=== PATIENT | male | born 1935 | race Caucasian/White ===

== ENCOUNTER 2016-10-27 06:06 | Day surgery (SDC) | payer MEDICARE, OTHER ==
[2016-10-27] MEDS ORDERED: LACTATED RINGERS 1,000 ML IV ONE (06:44)
[2016-10-27] MEDS ORDERED: fentaNYL 100 MCG/2 ML VIAL IVP ONE (07:30)
[2016-10-27] MEDS ORDERED: MIDAZOLAM 2 MG/2 ML VIAL IVP ONE (07:30)
[2016-10-27 09:12] VITALS: BP 121/63
== END 2016-10-27 06:07 | disposition home or self-care (01) ==
LOC: SDS 06:06
PROVIDERS: ATTEND Surgery
PROC: 0DBH8ZX Excision of Cecum, Via Natural or Artificial Opening Endoscopic, Diagnostic (ICD-10-PCS; principal; 2016-10-27 07:30)
DX: D12.0 Benign neoplasm of cecum (principal); K64.8 Other hemorrhoids; I10 Essential (primary) hypertension; E11.9 Type 2 diabetes mellitus without complications; Z85.46 Personal history of malignant neoplasm of prostate; Z87.891 Personal history of nicotine dependence
CPT/HCPCS: 45380; J7120; 88305

== ENCOUNTER 2017-08-23 07:06 | Outpatient (CLI) | payer MEDICARE, OTHER ==
[2017-08-23 12:02] LABS: BASOPHILS % (AUTO) 0.7 %; EOSINOPHILS # (AUTO) 0.1 10^3/uL (0.0-0.7); EOSINOPHILS % (AUTO) 2.4 %; HGB - HEMOGLOBIN 14.5 g/dL (14.0-18.0); LYMPHOCYTES # (AUTO) 1.5 10^3/uL (1.5-3.5); LYMPHOCYTES % (AUTO) 30.1 %; MEAN CORPUSCULAR HEMOGLOBIN 30.5 pg (27.0-31.0); MEAN CORPUSCULAR VOLUME 92.5 fL (80.0-94.0); MEAN PLATELET VOLUME 7.9 fL (7.4-11.4); MONOCYTES # (AUTO) 0.5 10^3/uL (0.0-1.0); MONOCYTES % (AUTO) 10.1 %; NEUTROPHILS # (AUTO) 2.9 10^3/uL (1.5-6.6); NEUTROPHILS % (AUTO) 56.7 %; PLT - PLATELET COUNT 179 10^3/uL (130-450); RED BLOOD COUNT 4.74 10^6/uL (4.70-6.10); RED CELL DISTRIBUTION WIDTH 13.4 % (12.0-15.0); WHITE BLOOD COUNT 5.1 x10^3/uL (4.8-10.8)
[2017-08-23 12:24] LABS: ALBUMIN 3.9 g/dL (3.2-5.5); ALKALINE PHOSPHATASE 45 IU/L (42-121); ALT ALANINE AMINOTRANSFERASE 21 IU/L (10-60); AST ASPARTATE AMINOTRANSFERASE 26 IU/L (10-42); BUN - BLOOD UREA NITROGEN 21 mg/dL (6-20); CALCIUM 10.1 mg/dL (8.5-10.3); CARBON DIOXIDE - CO2 31 mmol/L (21-32); CHLORIDE 101 mmol/L (101-111); CHOL/HDL RATIO 6.3 (<5.0); CHOLESTEROL 222 mg/dL; CREATININE 0.9 mg/dL (0.6-1.2); GFR - MDRD 81 (>89); GLUCOSE 129 mg/dL (70-100); HDL CHOLESTEROL 35 mg/dL; LDL CHOLESTEROL,CALCULATED 138 mg/dL; LDL/HDL RATIO 3.9 (<3.6); SODIUM 138 mmol/L (135-145); TOTAL PROTEIN 7.8 g/dL (6.7-8.2); VLDL CHOLESTEROL 49 mg/dL
[2017-08-23 12:38] LABS: HB2 TOTAL 15.9 g/dL; HEMOGLOBIN A1C 0.8 g/dL; HEMOGLOBIN A1C % 6.8 % (4.6-6.2)
== END 2017-08-23 07:07 | disposition home or self-care (01) ==
LOC: LAB.F 07:06
PROVIDERS: ATTEND Family Medicine
DX: E83.52 Hypercalcemia (principal); E11.9 Type 2 diabetes mellitus without complications; I10 Essential (primary) hypertension; C61 Malignant neoplasm of prostate; E78.5 Hyperlipidemia, unspecified
CPT/HCPCS: 36415; 80053; 80061; 82043; 83036; 83721; 84153; 84443; 85025

== ENCOUNTER 2020-09-12 10:55 | Outpatient (CLI) | payer MEDICARE, OTHER | END 2020-09-12 10:56 | disposition critical access hospital (66) | LOC: EMS 10:55 | DX: R47.81 Slurred speech (principal) | CPT/HCPCS: A0425; A0429 ==

== ENCOUNTER 2020-09-12 11:18 | Observation (INO) | payer MEDICARE, OTHER ==
[2020-09-12 12:03] LABS: BASOPHILS % (AUTO) 0.7 %; EOSINOPHILS # (AUTO) 0.1 10^3/uL (0.0-0.7); EOSINOPHILS % (AUTO) 1.6 %; HCT - HEMATOCRIT 44.3 % (42.0-52.0); HGB - HEMOGLOBIN 14.4 g/dL (14.0-18.0); LYMPHOCYTES # (AUTO) 1.2 10^3/uL (1.5-3.5); LYMPHOCYTES % (AUTO) 27.5 %; MEAN CORPUSCULAR HEMOGLOBIN 30.2 pg (27.0-31.0); MEAN CORPUSCULAR HGB CONC 32.5 g/dL (32.0-36.0); MEAN CORPUSCULAR VOLUME 92.9 fL (80.0-94.0); MEAN PLATELET VOLUME 8.7 fL (7.4-11.4); MONOCYTES # (AUTO) 0.5 10^3/uL (0.0-1.0); MONOCYTES % (AUTO) 11.1 %; NEUTROPHILS # (AUTO) 2.6 10^3/uL (1.5-6.6); NEUTROPHILS % (AUTO) 58.9 %; PLT - PLATELET COUNT 149 10^3/uL (130-450); RED BLOOD COUNT 4.77 10^6/uL (4.70-6.10); RED CELL DISTRIBUTION WIDTH 12.8 % (12.0-15.0); WHITE BLOOD COUNT 4.3 x10^3/uL (4.8-10.8)
[2020-09-12] MEDS ORDERED: IOPAMIDOL-300 100 ML VIAL ONE (12:20)
[2020-09-12 12:23] LABS: ALBUMIN 4.2 g/dL (3.2-5.5); ALBUMIN/GLOBULIN RATIO 1.3 (1.0-2.2); BILIRUBIN,TOTAL 0.7 mg/dL (0.2-1.0); CALCIUM 9.9 mg/dL (8.5-10.3); CREATININE 0.9 mg/dL (0.6-1.2); POTASSIUM 4.3 mmol/L (3.5-5.0); TOTAL PROTEIN 7.4 g/dL (6.7-8.2)
--- NOTE | 2020-09-12 12:27 | ED Physician Documentation ---
PD HPI FOCAL NEURO - Stated complaint Stated Complaint: SLURRED SPEECH - Chief complaint Chief Complaint: Neuro - History obtained from History obtained from: Patient, Family - History of Present Illness Timing - onset: Today Timing - duration: Minutes (5-6) Timing - details: Abrupt onset Severity of deficit: Moderate Weakness: No: Face, Arm, Hand, Leg, Foot, Right, Left Numbness: No: Face, Arm, Hand, Leg, Foot, Right, Left Associated symptoms: No: Headache, Nausea / vomiting, Seizure, Syncope, Fall, Head injury, Chest pain, Neck pain, Back pain Contributing factors: negative: Anticoagulated, Vascular dz, Atrial fibrillat ion, Prosthetic heart valve Baseline status: positive: A&OX3, ambulatory, indep - Additional information Additional information: Patient states he had a similar episode about 10 years ago, he spoke with his doctor at that time who told him he likely had a TIA. Patient does not remember any work-up being done at that time. Today he felt like he could not read of the paper in front of him and then when he went to talk to his , the words would not come out and when they did they were slurred. Lasted about 5 to 6 minutes. Review of Systems Constitutional: denies: Fever, Chills GI: denies: Vomiting, Diarrhea Musculoskeletal: denies: Neck pain, Back pain Neurologic: denies: Headache PD PAST MEDICAL HISTORY - Past Medical History Past Medical History: Yes Cardiovascular: Hypertension, High cholesterol Respiratory: None Neuro: TIA, Peripheral neuropathy Endocrine/Autoimmune: Type 2 diabetes GI: Colon polyps, Other : Benign prostate hypertrophy HEENT: Chronic vision loss, Other Psych: None Musculoskeletal: Gout Derm: None Other Past Medical History: prostate CA with seed treatment - Past Surgical History Past Surgical History: Yes General: Colonoscopy HEENT: Cataracts - Present Medications Home Medications: Ambulatory Orders Medication Instructions Recorded Confirmed [place]-3/Dha/Epa/Fish Oil [Fish Oil 1 each PO DAILY 10/27/16 09/12/20 1,000 mg Softgel] Simvastatin [Zocor] 40 mg PO DAILY 10/27/16 09/12/20 Tamsulosin HCl [Flomax] 0.4 mg PO DAILY 10/27/16 09/12/20 atenoloL [Atenolol] 50 mg PO DAILY 10/27/16 09/12/20 - Allergies Allergies/Adverse Reactions: Allergies Allergy/AdvReac Type Severity Reaction Status Date / Time No Known Drug Allergies Allergy Verified 09/12/20 11:24 - Social History Does the pt smoke?: No Smoking Status: Former smoker Does the pt drink ETOH?: No Does the pt have substance abuse?: No - Immunizations Immunizations are current?: Yes PD ED PE NORMAL - Vitals Vital signs reviewed: Yes - General General: Alert and oriented X 3, No acute distress - HEENT HEENT: PERRL, Moist mucous membranes - Neck Neck: Supple, no meningeal sign - Cardiac Cardiac: RRR, Strong equal pulses - Respiratory Respiratory: No respiratory distress, Clear bilaterally - Abdomen Abdomen: Soft, Non tender, Non distended - Derm Derm: Warm and dry - Extremities Extremities: No edema - Neuro Neuro: Alert and oriented X 3, 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, No motor deficit, No sensory deficit, Normal speech Eye Opening: Spontaneous Motor: Obeys Commands Verbal: Oriented GCS Score: 15 - Psych Psych: Normal mood, Normal affect NIHSS - Time Time: 12:20 - Level of Consciousness Level of consciousness: (0) Alert, Keenly responsive LOC Questions: (0) Answers both Q's correct LOC Commands: (0) Performs both correctly - Gaze Best Gaze: (0) Normal - Visual Visual: (0) No loss - Facial Palsy Facial Palsy: (0) Normal, symmetrical movement - Motor Arms (both separate) Motor Arm (right): (0) No drift Motor Arm (left): (0) No drift - Motor Legs (both separate) Motor Leg (right): (0) No drift Motor Leg (left): (0) No drift - Limb Ataxia Limb Ataxia: (0) Absent - Sensory Sensory: (0) Normal - Best Language Best Language: (0) No aphasia - Dysarthria Dysarthria: (0) Normal - Extinction and Inattention (formally neg Extinction and inattention: (0) No abnormality - Total Score/Results Total Score/Result: 0 Results - Vitals Vitals: Vital Signs - 24 hr 09/12/20 12:58 Temperature 36.4 C L Heart Rate 55 L Respiratory 12 Rate Blood Pressure 149/77 H O2 Saturation 96 Oxygen O2 Source Room air - EKG (time done) 1121 Rate: Rate (enter#) (56) Rhythm: NSR Follett: Posterior hemiblock (LPFB) Intervals: Normal RI, RBBB Ischemia: Normal ST segments - Labs Labs: Laboratory Tests 09/12/20 09/12/20 09/12/20 11:59 11:59 11:59 WBC 4.3 L RBC 4.77 Hgb 14.4 Hct 44.3 MCV 92.9 MCH 30.2 MCHC 32.5 RDW 12.8 Plt Count 149 MPV 8.7 Neut # (Auto) 2.6 Lymph # (Auto) 1.2 L [place] # (Auto) 0.5 Eos # (Auto) 0.1 Baso # (Auto) 0.0 Absolute Nucleated RBC 0.00 Nucleated RBC % 0.0 PT 12.4 INR 1.1 Sodium 137 Potassium 4.3 Chloride 101 Carbon Dioxide 27 Anion Gap 9.0 BUN 23 H Creatinine 0.9 Estimated GFR (MDRD) 80 L Glucose 165 H Calcium 9.9 Total Bilirubin 0.7 AST 27 ALT 21 Alkaline Phosphatase 53 Total Protein 7.4 Albumin 4.2 Globulin 3.2 Albumin/Globulin Ratio 1.3 - Rads (name of study) CT angio head Radiology: Final report received, EMP read contemporaneously, See rad report (no acute abnormality) CT angio neck Radiology: Final report received, EMP read contemporaneously, See rad report (no acute abnormality) PD MEDICAL DECISION MAKING - ED course Complexity details: reviewed results, re-evaluated patient, considered differential, d/w patient, d/w family ED course: 85-year-old male presents to the emergency department with speech deficits today, lasted about 5 minutes. No significant findings on laboratory testing or angiogram of the head and neck. Asymptomatic here. Symptoms consistent with TIA. We will place in observation for further work-up. Discussed the case with Dr. Wright, hospitalist who accepts This document was made in part using voice recognition software. While efforts are made to proofread this document, sound alike and grammatical errors may occur. Departure - Departure Disposition: ED Place in Observation Clinical Impression: TIA (transient ischemic attack), Slurred speech Condition: Stable Discharge Date/Time: 09/12/20 16:08
[2020-09-12] MEDS ORDERED: IOPAMIDOL-300 100 ML VIAL IVP ONE (12:54)
[2020-09-12 12:58] LABS: INR 1.1 (0.8-1.2); PT - PROTHROMBIN TIME 12.4 secs (9.9-12.6)
--- NOTE | 2020-09-12 13:07 | CT Report ---
PROCEDURE: ANGIO HEAD W/WO INDICATIONS: slurred speech x 5 mins today CONTRAST: IV CONTRAST: Isovue 300 ml: 80 PO CONTRAST: *NO PO CONTRAST TECHNIQUE: Precontrast 4.5 mm thick angled axial sections acquired from the foramen magnum to the vertex. Afte r the administration of intravenous contrast, 1 mm thick sections acquired through the [place] is. Postcontrast 4.5 mm thick sections then re-acquired from the foramen magnum to the vertex. 3-di mensional frufgkm-bcgauctwk-bopcntmyru (MIP) and/or volume rendering reformats were acquired of the c entral intracranial vasculature. For radiation dose reduction, the following was used: automated ex posure control, adjustment of mA and/or kV according to patient size. COMPARISON: None FINDINGS: Image quality: Excellent. Anterior circulation: Mild calcific narrowing of the cavernous segments of the bilateral internal car otid arteries. Intracranial internal carotid arteries are otherwise normal in size and flow. The sang w within the paired anterior cerebral arteries is normal and symmetric. The flow within the middle c erebral arteries is normal and symmetric. The anterior communicating artery is seen. No aneurysms a re seen. Posterior circulation: Visualized portions of the vertebral arteries demonstrate normal caliber, and join to form a normal appearing basilar artery. Flow within the posterior cerebral arteries is norm al and symmetric. No aneurysms are seen. CSF spaces: Ventricles are normal in size and shape. Basal cisterns are patent. No extra-axial flu id collections. Brain: No midline shift. No intracranial bleeds or masses. [place]-white matter interface appears int act. Skull and face: Calvarium and facial bones appear intact, without suspicious lesions. Sinuses: Visualized sinuses and mastoids are clear. IMPRESSION: 1. No acute intracranial abnormality. 2. No acute process involving the arterial structures of the head. Reviewed by: Shaina Cadena MD on 09/12/2020 12:06 PM ZULEIKA Approved by: Shaina Cadena MD on 09/12/2020 12:06 PM ZULEIKA Station ID: [id number]
--- NOTE | 2020-09-12 13:09 | CT Report ---
PROCEDURE: ANGIO NECK W INDICATIONS: slurred speech x 5 mins today CONTRAST: IV CONTRAST: Isovue 300 ml: 80 PO CONTRAST: *NO PO CONTRAST TECHNIQUE: After the administration of intravenous contrast, 1.5 mm axial sections acquired from the aortic arch to the [place]. Coronal 3-D maximum intensity projection (MIP) and/or volume rendering ref ormats were then performed. For radiation dose reduction, the following was used: automated exposur e control, adjustment of mA and/or kV according to patient size. COMPARISON: None. FINDINGS: Image quality: Excellent. Thoracic aorta crushed demonstrates mild diffuse calcific stenosis. There is standard branching anato my. Innominate artery is patent. Right subclavian artery demonstrates a mild calcific origin stenosis . Right vertebral artery demonstrates a high-grade calcific origin stenosis, and is otherwise patent. Right common carotid artery is patent. Right internal carotid artery demonstrates 20% calcific origin stenosis, and is otherwise patent. Right external carotid artery is patent. Left common carotid artery demonstrates a mild calcific origin stenosis, and is otherwise patent. Rou ghly 30% calcific origin stenosis of the left internal carotid artery is present which is otherwise p atent. Left external carotid artery is patent. Left subclavian artery demonstrates a mild calcific origin stenosis, and is otherwise patent. Left ve rtebral artery demonstrates a high-grade calcific origin stenosis, and is otherwise patent. Soft tissues: Visualized neck soft tissues demonstrate no suspicious abnormalities. The thyroid is normal in size and there are no incidental findings. Bones: No suspicious bony lesions. Visualized cervical spine appears normally aligned. IMPRESSION: 1. No acute process involving the arterial tree of the neck. 2. Bilateral carotid and vertebral artery stenoses as described above. The estimate of stenosis included in the report of the imaging study was calculated using the NASCET method CLINICAL RECOMMENDATION STATEMENTS: In patients <35 years with an ITN detected on CT, MRI, or extrathyroidal ultrasound, the Committee re commends further evaluation with dedicated thyroid ultrasound if the nodule is ?1 cm and has no suspi cious imaging features, and if the patient has normal life expectancy. In patients ?35 years with an ITN detected on CT, MRI, or extrathyroidal ultrasound, the Committee re commends further evaluation with dedicated thyroid ultrasound if the nodule is ?1.5 cm and has no indigo picious imaging features, and if the patient has normal life expectancy. (ACR, 2014) Reviewed by: Shaina aCdena MD on 09/12/2020 12:08 PM ZULEIKA Approved by: Shaina Cadena MD on 09/12/2020 12:08 PM AKYANI Station ID: [id number]
[2020-09-12] MEDS ORDERED: SODIUM CHLORIDE FLUSH 0.9% 10 ML SYRINGE IVP PRN (14:36)
[2020-09-12] MEDS ORDERED: ONDANSETRON ODT 4 MG TABLET TL PRN (14:36)
[2020-09-12] MEDS ORDERED: ACETAMINOPHEN 325 MG TABLET PO PRN (14:36)
--- NOTE | 2020-09-12 14:39 | HISTORY & PHYSICAL EXAMINATION ---
Chief Complaint - Chief Complaint Chief Complaint: blurred vision, slurred speech History of Present Illness - Admitted From Admitted From:: [facility] ED - History Obtained From Records Reviewed: yes History obtained from: patient - History of Present Illness HPI Comment/Other: Patient is 85-year-old male with medical history significant for hypertension, hyperlipidemia, BPH, diabetes mellitus type 2 and previous TIA who presented to the ED with complaint of blurred vision and slurred speech. This happened today around 10 AM while he was making himself some coffee. The symptoms lasted about 5 to 10 minutes. It resolved before EMS arrived his house. He reports a previous occurrence about 10 to 11 years ago which lasted about 7 to 8 minutes and resulted in a transient pixelated vision. He did not seek medical attention at the time. Work-up in the ED today included a CT angiogram of the head and neck which were unremarkable. At bedside he is resting comfortably in bed he denies headaches, double or blurry vision, difficulty speaking or difficulty swallowing. He also denies chest pain, dyspnea, abdominal pain, nausea, vomiting, fever or chills. The rest of his history is unremarkable. He is being admitted for a TIA work-up. History - Past Medical History Cardiovascular: reports: Hypertension, High cholesterol Respiratory: reports: None Neuro: reports: TIA, Peripheral neuropathy Endocrine/Autoimmune: reports: Type 2 diabetes GI: reports: Colon polyps, Other : reports: Benign prostate hypertrophy HEENT: reports: Chronic vision loss, Other Psych: reports: None Musculoskeletal: reports: Gout Derm: reports: None MRSA Hx?: No Other Past Medical History: prostate CA with seed treatment - Past Surgical History General: reports: Colonoscopy HEENT: reports: Cataracts Derm: reports: Skin cancer surgery - Family & Social History Family History Comment/Other: His father at age 93 from a CVA. He also had an MD in his 60s. 1 sister from a CVA. His second and third sisters both from breast cancer which metastatic to bone. His brother at age 89 from unknown cause. He describes that his brother went to sleep and then wake up in the morning. Social History Notes: He lives at home with his . He is very independent and very active. He walks at least 4 miles daily. He does not use tobacco products, consume alcohol or recreational substances. - POLST Patient has POLST: No POLST Status: Full Code Meds/Allgy - Home Medications Home Medications: Ambulatory Orders Medication Instructions Recorded Confirmed [place]-3/Dha/Epa/Fish Oil [Fish Oil 1 each PO DAILY 10/27/16 09/12/20 1,000 mg Softgel] Simvastatin [Zocor] 40 mg PO DAILY 10/27/16 09/12/20 Tamsulosin HCl [Flomax] 0.4 mg PO DAILY 10/27/16 09/12/20 atenoloL [Atenolol] 50 mg PO DAILY 10/27/16 09/12/20 - Allergies Allergies/Adverse Reactions: Allergies Allergy/AdvReac Type Severity Reaction Status Date / Time No Known Drug Allergies Allergy Verified 09/12/20 11:24 Review of Systems - Constitutional Constitutional: denies: Fatigue, Fever, Chills - Eyes Eyes: denies: Pain, Blurred vision, Dipolpia - Ears, Nose & Throat Ears, Nose & Throat: denies: Ear pain, Tinnitus, Vertigo - Cardiovascular Cariovascular: denies: Chest pain, Edema, Lightheadedness - Respiratory Respiratory: denies: Cough, Sputum production, Wheezing, SOB at rest, SOB with exertion - Gastrointestinal Gastrointestinal: denies: Abdominal pain, Abdominal distention, Constipation, Diarrhea, Nausea, Vomiting - Genitourinary Genitourinary: denies: Dysuria, Frequency, Urgency, Hematuria - Musculoskeletal Musculoskeletal: denies: Muscle pain, Back pain, Muscle aches - Integumentary Integumentary: denies: Rash, Pruritis - Neurological Neurological: reports: Slurred speech. denies: General weakness, Headache, Dizziness, Numbness - Psychiatric Psychiatric: denies: Depression, Anxiety - Endocrine Endocrine: denies: Polyuria, Polydypsia - Hematologic/Lymphatic Hematologic/Lymphatic: denies: Anemia, Bruising, Petechiae Prior Level of Functionality: He is very active and independent of activities of daily living. He walks 4 miles daily. Exam - Vital Signs Vital Signs: Vital Signs x48h Temp Pulse Resp BP Pulse Ox 09/12/20 12:58 36.4 C L 55 L 12 149/77 H 96 09/12/20 11:32 36.5 C 55 L 12 197/81 H 96 09/12/20 11:19 36.5 C 58 L 16 181/89 H 97 - Physical Exam General Appearance: positive: No acute distress, Alert Eyes Bilateral: positive: PERRL, EOMI ENT: positive: No signs of dehydration Neck: positive: No JVD, Trachea midline Respiratory: positive: Chest non-tender, No respiratory distress, Breath sounds nml. negative: Wheezes, Rales, Rhonchi Cardiovascular: positive: Regular rate & rhythm, No murmur Abdomen: positive: Non-tender, No organomegaly, Nml bowel sounds, No distention. negative: Guarding, Rebound Back: positive: Nml inspection Skin: positive: Color nml, No rash, Warm, Dry Extremities: positive: Non-tender, Full ROM, Nml appearance, No pedal edema Neurologic/Psychiatric: positive: Oriented x3, CN's nml (2-12), Motor nml, Sensation nml, Mood/affect nml. negative: Weakness, Facial droop, Slurred/abnml speech Conclusion/Plan - Problem List (1) TIA (transient ischemic attack) Conclusion/Plan: CT, CT angio head and neck were unremarkable. Neurochecks every shift. MRI of the brain, 2D echocardiogram ordered. Lipid panel and hemoglobin A1c pending for the morning. Baby aspirin daily. Continue patient's simvastatin 40 mg p.o. daily. Continue omega-3 fatty acids. (2) Hypertension Conclusion/Plan: On atenolol daily. We will continue (3) Diabetes mellitus Conclusion/Plan: Patient uses diet and exercise to control his blood sugar. He reports that his last hemoglobin A1c was around 7. We will recheck hemoglobin A1c. Carb controlled diet ordered Sliding scale insulin ordered. Accu-Cheks before every meal and at bedtime. Qualifiers: Diabetes mellitus type: type 2 (4) Hyperlipidemia Conclusion/Plan: On simvastatin 40 mg every afternoon. Will continue. Lipid panel pending (5) BPH (benign prostatic hyperplasia) Conclusion/Plan: On tamsulosin - Lab Results Fish Bones: 09/12/20 11:59 09/12/20 11:59 Core Measures - Anticipated LOS I expect patient to be DC'd or transferred within 96 hours.: Yes - DVT/VTE - Prophylaxis VTE/DVT Device ordered at admit?: Yes
[2020-09-12 15:52] LABS: B. PARAPERTUSSIS- RESP PCR PAN NOT DETECTED; B. PERTUSSIS- RESP PCR PANEL NOT DETECTED; C. PNEUMONIAE- RESP PCR PANEL NOT DETECTED; CORONAVIRUS 229E-RESP PCR NOT DETECTED; CORONAVIRUS HKU1-RESP PCR NOT DETECTED; CORONAVIRUS NL63-RESP PCR NOT DETECTED; CORONAVIRUS OC43-RESP PCR NOT DETECTED; HUMAN METAPNEUMOVIRUS NOT DETECTED; INFLUENZA A- RESP PCR PANEL NOT DETECTED; INFLUENZA B - RESP PCR PANEL NOT DETECTED; M. PNEUMONIAE- RESP PCR PANEL NOT DETECTED; PARAINFLUENZA VIRUS 1 NOT DETECTED; PARAINFLUENZA VIRUS 2 NOT DETECTED; PARAINFLUENZA VIRUS 3 NOT DETECTED; PARAINFLUENZA VIRUS 4 NOT DETECTED; RHINOVIRUS/ENTEROVIRUS NOT DETECTED; RSV- RESP PCR PANEL NOT DETECTED; SARS-CoV-2 -RESP PCR PANEL NOT DETECTED
[2020-09-12] MEDS: INSULIN ASPART 300 UNIT/3 ML PEN SUBQ SCH ×2 (17:22→20:44)
[2020-09-12] MEDS: SODIUM CHLORIDE FLUSH 0.9% 10 ML SYRINGE IVP SCH (17:23)
[2020-09-12] MEDS ORDERED: ATORVASTATIN 10 MG TABLET PO ONE (20:59)
[2020-09-12] MEDS ORDERED: ATORVASTATIN 10 MG TABLET PO SCH (21:00)
[2020-09-13] MEDS: SODIUM CHLORIDE FLUSH 0.9% 10 ML SYRINGE IVP SCH ×2 (01:24→08:38)
[2020-09-13 05:21] LABS: BASOPHILS % (AUTO) 0.6 %; EOSINOPHILS # (AUTO) 0.1 10^3/uL (0.0-0.7); EOSINOPHILS % (AUTO) 1.8 %; HCT - HEMATOCRIT 44.8 % (42.0-52.0); HGB - HEMOGLOBIN 14.8 g/dL (14.0-18.0); LYMPHOCYTES # (AUTO) 1.4 10^3/uL (1.5-3.5); LYMPHOCYTES % (AUTO) 27.6 %; MEAN CORPUSCULAR HEMOGLOBIN 29.9 pg (27.0-31.0); MEAN CORPUSCULAR VOLUME 90.5 fL (80.0-94.0); MEAN PLATELET VOLUME 8.5 fL (7.4-11.4); MONOCYTES # (AUTO) 0.5 10^3/uL (0.0-1.0); MONOCYTES % (AUTO) 9.5 %; NEUTROPHILS % (AUTO) 60.3 %; PLT - PLATELET COUNT 155 10^3/uL (130-450); RED BLOOD COUNT 4.95 10^6/uL (4.70-6.10); RED CELL DISTRIBUTION WIDTH 12.8 % (12.0-15.0)
[2020-09-13 05:30] LABS: CALCIUM 9.6 mg/dL (8.5-10.3); CREATININE 0.9 mg/dL (0.6-1.2)
[2020-09-13 05:39] LABS: CHOL/HDL RATIO 5.2 (<5.0); CHOLESTEROL 199 mg/dL; HDL CHOLESTEROL 38 mg/dL; LDL CHOLESTEROL,CALCULATED 125 mg/dL; LDL/HDL RATIO 3.3 (<3.6); TRIGLYCERIDES 181 mg/dL; VLDL CHOLESTEROL 36 mg/dL
--- NOTE | 2020-09-13 08:00 | DISCHARGE SUMMARY ---
Discharge Summary Admit Date: 09/12/20 Discharge Date: 09/13/20 Discharging Provider: Marvin Wright Primary Care Provider: Trae Mcgee Code Status: Attempt Resuscitation Condition at Discharge: Stable Discharge Disposition: 01 Home, Self Care - DIAGNOSES Admission Diagnoses: TIA Hypertension Diabetes mellitus Hyperlipidemia BPH Discharge Diagnoses with Status of Each Condition: TIA: Resolved Hypertension: Chronic. Stable Diabetes mellitus: Chronic. Stable. HgA1c 7.1 Hyperlipidemia: Chronic. Stable BPH: Chronic. Stable - HPI History of Present Illness: Patient is 85-year-old male with medical history significant for hypertension, hyperlipidemia, BPH, diabetes mellitus type 2 and previous TIA who presented to the ED with complaint of blurred vision and slurred speech. This happened today around 10 AM while he was making himself some coffee. The symptoms lasted about 5 to 10 minutes. It resolved before EMS arrived his house. He reports a previous occurrence about 10 to 11 years ago which lasted about 7 to 8 minutes and resulted in a transient pixelated vision. He did not seek medical attention at the time. Work-up in the ED today included a CT angiogram of the head and neck which were unremarkable. At bedside he is resting comfortably in bed he denies headaches, double or blurry vision, difficulty speaking or difficulty swallowing. He also denies chest pain, dyspnea, abdominal pain, nausea, vomiting, fever or chills. The rest of his history is unremarkable. He is being admitted for a TIA work-up. - HOSPITAL COURSE Hospital Course: Upon admission neurochecks were done every shift. The patient was monitored on telemetry overnight. His overnight stay was unremarkable. His hemoglobin A1c was 7.1. Lipid panel showed a triglyceride level of 181. The patient opted to continue diet and exercise and attempt to control his triglyceride levels as opposed to starting a medication. He is agreeable to follow-up with his primary care physician and have lipid panel repeated in 3 months for reevaluation. An MRI of the brain could not be done due to malfunctioning of the scanner. 2D echocardiogram showed left ventricular size was normal. The left ventricular wall thickness is towards the upper limit of normal to mildly increased. Overall left ventricular systolic function is normal with an ejection fraction of 60 to 65%. Impaired relaxation consistent with grade 1 diastolic dysfunction. No regional wall motion abnormality. Right ventricle is normal in size and function. Mild increase in the left atrial volume index. Mild to moderate right atrial enlargement. The aortic valve is trileaflet. There is mild to moderate aortic valve sclerosis. There was no evidence of stenosis or aortic regurgitation. The RVSP at rest was 36 mmHg. The pulmonic valve was normal. There was trace to mild pulmonic regurgitation. There was no pulmonic stenosis. There is no pericardial effusion. The intra-atrial septum appeared normal. There was no thrombus mass or pleural effusion. Patient's home medications were resumed. He was advised to take a baby aspirin daily. Patient was discharged in stable condition. - ALLERGIES Allergies/Adverse Reactions: Allergies Allergy/AdvReac Type Severity Reaction Status Date / Time No Known Drug Allergies Allergy Verified 09/12/20 11:24 - MEDICATIONS Home Medications: Ambulatory Orders Medication Instructions Recorded Confirmed [place]-3/Dha/Epa/Fish Oil [Fish Oil 1 each PO DAILY 10/27/16 09/12/20 1,000 mg Softgel] Simvastatin [Zocor] 40 mg PO DAILY 10/27/16 09/12/20 Tamsulosin HCl [Flomax] 0.4 mg PO DAILY 10/27/16 09/12/20 atenoloL [Atenolol] 50 mg PO DAILY 10/27/16 09/12/20 - PHYSICAL EXAM AT DISCHARGE General Appearance: positive: No acute distress, Alert Eyes Bilateral: positive: PERRL, EOMI ENT: positive: No signs of dehydration Neck: positive: No JVD, Trachea midline Respiratory: positive: Chest non-tender, No respiratory distress, Breath sounds nml. negative: Wheezes Cardiovascular: positive: Regular rate & rhythm, No murmur Abdomen: positive: Non-tender, No organomegaly, Nml bowel sounds, No distention. negative: Guarding, Rebound Back: positive: Nml inspection Skin: positive: Color nml, No rash, Warm, Dry Extremities: positive: Non-tender, Full ROM, Nml appearance, No pedal edema Neurologic/Psychiatric: positive: Oriented x3, CN's nml (2-12), Motor nml, Sensation nml, Mood/affect nml - LABS Result Diagrams: 09/13/20 05:15 09/13/20 05:15 - TIME SPENT Time Spent in Discharge (Minutes): 25
--- NOTE | 2020-09-13 08:00 | Discharge Plan ---
Discharge Plan Problem Reviewed?: Yes Disposition: Home, Self Care Condition: Stable Diet: Cardiac Activity Restrictions: Activity as Tolerated Shower Restrictions: No Driving Restrictions: No Weight Bearing: Full Weight Health Concerns: You presented to the emergency department yesterday after you experience blurred vision and slurred speech. This lasted only 5 to 10 minutes and resolved before you arrived there hospital. You had a CT, CT angiogram of your head and neck which was negative. On exam in the emergency room and subsequently you did not have any neurological deficits. You were monitored overnight and your stay was unremarkable. You underwent a 2D echocardiogram. which showed your overall heart function was good. Brain MRI could not be completed due to malfunction of the machine. You have been advised to follow-up with your primary care physician Dr. Mcgee to order one in the outpatient setting. You have been advised to take a baby aspirin daily. Your triglyceride level was a little bit elevated at 181. You opted for diet and exercise as opposed to starting a medication. You are to follow-up and have your primary care physician repeat your lipid panel in 3 months. We will resume your other medications upon discharge. This plan was discussed with you, you expressed understanding and are in agreement. You are being discharged in stable condition. No Smoking: If you smoke, Please STOP! Call for help. Follow-up with: ALYSSIA MCGEE MD [Primary Care Provider] -
[2020-09-13] MEDS: INSULIN ASPART 300 UNIT/3 ML PEN SUBQ SCH ×2 (08:37→11:50)
[2020-09-13] MEDS ORDERED: TAMSULOSIN 0.4 MG CAPSULE PO SCH (09:00)
[2020-09-13] MEDS ORDERED: OMEGA-3 ACID ETHYL ESTERS 1 GM CAPSULE PO SCH (09:00)
[2020-09-13] MEDS ORDERED: ASPIRIN CHEW 81 MG TABLET PO SCH (09:00)
[2020-09-13 09:32] LABS: ESTIMATED AVERAGE GLUCOSE 157 mg/dL (70-100); HEMOGLOBIN A1c% 7.1 % (4.27-6.07)
[2020-09-13] MEDS ORDERED: LORazepam 2 MG/ML VIAL IVP STA (09:34)
[2020-09-13 12:45] VITALS: BP 132/60
== END 2020-09-13 15:02 | disposition home or self-care (01) ==
LOC: EDUNIT# → ED 11:18 → MS2 14:36
PROVIDERS: ADMIT Internal Medicine; ATTEND Internal Medicine
DX: G45.9 Transient cerebral ischemic attack, unspecified (principal); I10 Essential (primary) hypertension; E78.5 Hyperlipidemia, unspecified; I08.8 Other rheumatic multiple valve diseases; E11.42 Type 2 diabetes mellitus with diabetic polyneuropathy; N40.0 Benign prostatic hyperplasia without lower urinary tract symptoms; H54.7 Unspecified visual loss; Z20.822 Contact with and (suspected) exposure to COVID-19; Z79.899 Other long term (current) drug therapy; Z87.891 Personal history of nicotine dependence; Z85.46 Personal history of malignant neoplasm of prostate; Z86.73 Personal history of transient ischemic attack (TIA), and cerebral infarction without residual deficits; Z92.3 Personal history of irradiation; Z82.49 Family history of ischemic heart disease and other diseases of the circulatory system; R29.700 NIHSS score 0
CPT/HCPCS: 36415; 70496; 70498; 80048; 80053; 80061; 83036; 85025; 85610; 87631; 93005; 93306; 96374; 99284; 99285; A9270; G0378; J2060; Q9967; 0202U; 83721

== ENCOUNTER 2020-12-22 13:00 | Outpatient (CLI) | payer MEDICARE, OTHER ==
[2020-12-22 13:37] LABS: ALBUMIN 4.3 g/dL (3.2-5.5); ALBUMIN/GLOBULIN RATIO 1.2 (1.0-2.2); ALKALINE PHOSPHATASE 46 IU/L (42-121); ALT ALANINE AMINOTRANSFERASE 31 IU/L (10-60); AST ASPARTATE AMINOTRANSFERASE 33 IU/L (10-42); BILIRUBIN,TOTAL 0.6 mg/dL (0.2-1.0); BUN - BLOOD UREA NITROGEN 30 mg/dL (6-20); CALCIUM 10.6 mg/dL (8.5-10.3); CARBON DIOXIDE - CO2 29 mmol/L (21-32); CHLORIDE 100 mmol/L (101-111); CHOL/HDL RATIO 3.8 (<5.0); CHOLESTEROL 152 mg/dL; CREATININE 0.8 mg/dL (0.6-1.2); GFR - MDRD 91 (>89); GLUCOSE 118 mg/dL (70-100); HDL CHOLESTEROL 40 mg/dL; LDL CHOLESTEROL,CALCULATED 71 mg/dL; LDL/HDL RATIO 1.8 (<3.6); POTASSIUM 4.5 mmol/L (3.5-5.0); SODIUM 140 mmol/L (135-145); TOTAL PROTEIN 7.8 g/dL (6.7-8.2); TRIGLYCERIDES 206 mg/dL; VLDL CHOLESTEROL 41 mg/dL
[2020-12-22 20:13] LABS: ESTIMATED AVERAGE GLUCOSE 154 mg/dL (70-100)
== END 2020-12-22 13:01 | disposition home or self-care (01) ==
LOC: LAB 13:00
PROVIDERS: ATTEND Family Medicine
DX: E78.5 Hyperlipidemia, unspecified (principal); I10 Essential (primary) hypertension; E11.69 Type 2 diabetes mellitus with other specified complication
CPT/HCPCS: 36415; 80053; 80061; 83036; 83721

== ENCOUNTER 2022-04-10 10:42 | Outpatient (CLI) | payer MEDICARE, OTHER | END 2022-04-10 23:59 | disposition critical access hospital (66) | LOC: EMS 10:42 | DX: R53.1 Weakness (principal); R42 Dizziness and giddiness | CPT/HCPCS: A0425; A0429 ==

== ENCOUNTER 2022-04-10 11:06 | Emergency (ER) | payer MEDICARE, OTHER ==
[2022-04-10] MEDS ORDERED: MECLIZINE 12.5 MG TABLET PO STA (11:41)
[2022-04-10] MEDS ORDERED: SODIUM CHLORIDE 0.9% 1,000 ML IV STA (11:41)
--- NOTE | 2022-04-10 11:58 | ED Physician Documentation ---
History of Present Illness - Stated complaint Stated Complaint: VERTIGO - Chief complaint Chief Complaint: Neuro - History obtained from History obtained from: Patient - Additonal information Additional information: Patient is an 86-year-old male presenting for evaluation of feeling off balance this morning. Patient states that he normally has no difficulty in getting out of bed but this morning when he was getting up felt woozy as if he was rocking from side to side like on a boat.He states that he had to sit on the edge of the bed for a little bit of time but before getting up further. He says he usually is able to make his bed pretty quickly in the morning but this morning and it took him a few extra minutes. He continued to have some episodes where he felt steady. He denied having a headache, head injury, visual disturbances, nausea, ear ringing, vomiting.He says his symptoms have improved and he diet denies recent illness.He does not take a blood thinner. He has been eating and drinking well recently. He does report his symptoms seem a little bit worse when turning to the right side. Review of Systems Constitutional: denies: Fever Cardiac: denies: Chest pain / pressure Respiratory: denies: Dyspnea GI: denies: Abdominal Pain : denies: Dysuria Musculoskeletal: denies: Back pain Neurologic: denies: Headache PD PAST MEDICAL HISTORY - Past Medical History Cardiovascular: Hypertension, High cholesterol Respiratory: None Neuro: TIA, Peripheral neuropathy Endocrine/Autoimmune: Type 2 diabetes GI: Colon polyps, Other : Benign prostate hypertrophy HEENT: Chronic vision loss, Other Psych: None Musculoskeletal: Gout Derm: None - Past Surgical History Past Surgical History: Yes General: Colonoscopy HEENT: Cataracts Derm: Skin cancer surgery - Present Medications Home Medications: Ambulatory Orders Medication Instructions Recorded Confirmed Glen-3/Dha/Epa/Fish Oil [Fish Oil 1 each PO DAILY 10/27/16 09/12/20 1,000 mg Softgel] Simvastatin [Zocor] 40 mg PO DAILY 10/27/16 09/12/20 Tamsulosin HCl [Flomax] 0.4 mg PO DAILY 10/27/16 09/12/20 atenoloL [Atenolol] 50 mg PO DAILY 10/27/16 09/12/20 Meclizine HCl [Motion Sickness] 25 mg PO Q6H PRN #15 tablet 04/10/22 - Allergies Allergies/Adverse Reactions: Allergies Allergy/AdvReac Type Severity Reaction Status Date / Time No Known Drug Allergies Allergy Verified 04/10/22 11:17 - Social History Does the pt smoke?: No Smoking Status: Former smoker Does the pt drink ETOH?: No Does the pt have substance abuse?: No - Immunizations Immunizations are current?: Yes - POLST Patient has POLST: No POLST Status: Full Code PD ED PE NORMAL - General General: Alert and oriented X 3, No acute distress - HEENT HEENT: Atraumatic, PERRL, EOMI, Ears normal, Moist mucous membranes, Pharynx benign, Other (Normal visual camacho) - Neck Neck: Supple, no meningeal sign - Cardiac Cardiac: RRR, No murmur - Respiratory Respiratory: No respiratory distress, Clear bilaterally - Abdomen Abdomen: Soft, Non tender, Non distended - Derm Derm: Warm and dry - Extremities Extremities: No deformity, No edema - Neuro Neuro: Alert and oriented X 3, flat breakdown processor 2-12 intact, No motor deficit, No sensory deficit, Normal speech, Other (Normal finger-nose and rapid alternating movements bilaterally; Normal unassisted gait) Results - Vitals Vitals: Vital Signs - 24 hr 04/10/22 04/10/22 11:14 13:53 Temperature 36.8 C Heart Rate 85 73 Respiratory 18 18 Rate Blood Pressure 162/101 H 135/78 H O2 Saturation 99 97 Oxygen O2 Source Room air - EKG (time done) 1114 Rate: Rate (enter#) (71) Rhythm: NSR Intervals: RBBB, Other (LPFB) Ischemia: No: ST elevation c/w ischemia - Labs Labs: Laboratory Tests 04/10/22 04/10/22 11:53 11:53 WBC 5.5 RBC 5.21 Hgb 14.9 Hct 46.4 MCV 89.1 MCH 28.6 MCHC 32.1 RDW 12.1 Plt Count 173 MPV 8.8 Neut # (Auto) 3.6 Lymph # (Auto) 1.3 [place] # (Auto) 0.4 Eos # (Auto) 0.1 Baso # (Auto) 0.0 Absolute Nucleated RBC 0.00 Nucleated RBC % 0.0 Sodium 133 L Potassium 4.3 Chloride 96 L Carbon Dioxide 28 Anion Gap 9.0 BUN 19 Creatinine 0.8 Estimated GFR (MDRD) 91 Glucose 186 H Calcium 10.5 H Total Bilirubin 0.7 AST 31 ALT 28 Alkaline Phosphatase 56 Total Protein 8.2 Albumin 4.2 Globulin 4.0 Albumin/Globulin Ratio 1.1 Lipase 30 PD Medical Decision Making - ED course Complexity details: reviewed results, re-evaluated patient, d/w patient ED course: Pt Presents for evaluation of feeling off balance this morning.Reports it feels worse with turning to the right.Symptoms have improved Since onset this morning.He is ambulatory Here with no focal deficits. He has normal cerebellar testing. I feel stroke is less likely given lack of other symptoms. EKG demonstrates a sinus rhythm and labs are reassuring including CBC and chemistries. CT head obtained given age which is negative for any intracranial bleed or mass. His chest x-ray is also unremarkable. Patient declined IV fluids here. He did receive a small dose of meclizine. He continued to feel improved With resolution of symptoms.Patient counseled on need for close follow- up with PCP as well as concerning symptoms to return for. Departure - Departure Disposition: 01 Home, Self Care Clinical Impression: Vertigo Condition: Stable Instructions: ED Vertigo Unspecified Prescriptions: Meclizine HCl [Motion Sickness] 25 mg PO Q6H PRN #15 tablet PRN Reason: Dizziness Comments: Your Symptoms suggest vertigo. Your labs and imaging are reassuring. I have sent a prescription for meclizine to the [facility] pharmacy. Please take this as directed. I would also recommend close follow-up with your primary care doctor. Please continue to stay hydrated and get plenty of rest today. If you have any worsening symptoms please consider return to the emergency department. Discharge Date/Time: 04/10/22 13:54
[2022-04-10 12:02] LABS: BASOPHILS % (AUTO) 0.6 %; EOSINOPHILS # (AUTO) 0.1 10^3/uL (0.0-0.7); EOSINOPHILS % (AUTO) 2.2 %; HCT - HEMATOCRIT 46.4 % (42.0-52.0); HGB - HEMOGLOBIN 14.9 g/dL (14.0-18.0); LYMPHOCYTES # (AUTO) 1.3 10^3/uL (1.5-3.5); LYMPHOCYTES % (AUTO) 23.5 %; MEAN CORPUSCULAR HEMOGLOBIN 28.6 pg (27.0-31.0); MEAN CORPUSCULAR HGB CONC 32.1 g/dL (32.0-36.0); MEAN CORPUSCULAR VOLUME 89.1 fL (80.0-94.0); MEAN PLATELET VOLUME 8.8 fL (7.4-11.4); MONOCYTES # (AUTO) 0.4 10^3/uL (0.0-1.0); MONOCYTES % (AUTO) 7.7 %; NEUTROPHILS # (AUTO) 3.6 10^3/uL (1.5-6.6); NEUTROPHILS % (AUTO) 65.8 %; PLT - PLATELET COUNT 173 10^3/uL (130-450); RED BLOOD COUNT 5.21 10^6/uL (4.70-6.10); RED CELL DISTRIBUTION WIDTH 12.1 % (12.0-15.0); WHITE BLOOD COUNT 5.5 x10^3/uL (4.8-10.8)
[2022-04-10 12:20] LABS: ALBUMIN 4.2 g/dL (3.2-5.5); ALBUMIN/GLOBULIN RATIO 1.1 (1.0-2.2); BILIRUBIN,TOTAL 0.7 mg/dL (0.2-1.0); CALCIUM 10.5 mg/dL (8.5-10.3); CREATININE 0.8 mg/dL (0.6-1.2); POTASSIUM 4.3 mmol/L (3.5-5.0); TOTAL PROTEIN 8.2 g/dL (6.7-8.2)
--- NOTE | 2022-04-10 12:25 | CT Report ---
PROCEDURE: HEAD WO INDICATIONS: dizzy TECHNIQUE: Noncontrast 4.5 mm thick angled axial sections acquired from the foramen magnum to the vertex. For r adiation dose reduction, the following was used: automated exposure control, adjustment of mA and/or kV according to patient size. COMPARISON: CTA head and neck dated 09/12/2020. FINDINGS: Image quality: Excellent. CSF spaces: Basal cisterns are patent. No extra-axial fluid collections. Ventricles are normal in size and shape. Brain: No midline shift. No intracranial masses or hemorrhage. [place]-white matter interface is norm al. Age-related volume loss and small vessel ischemic change. Intracranial carotid calcifications. D istal vertebral artery calcifications. Skull and face: Calvarium and visualized facial bones are intact, without suspicious lesions. Sinuses: Visualized sinuses and mastoids are clear. IMPRESSION: 1. ASCVD. 2. Age-related volume loss and small vessel ischemic change. 3. No evidence of acute intracranial abnormality. Reviewed by: Jose M Barba MD on 04/10/2022 12:24 PM PST Approved by: Jose M Barba MD on 04/10/2022 12:24 PM PST Station ID: [id number]
--- NOTE | 2022-04-10 12:26 | XRAY Report ---
PROCEDURE: Chest 1 View X-Ray INDICATIONS: dizzy TECHNIQUE: One view of the chest was acquired. COMPARISON: None. FINDINGS: Surgical changes and devices: None. Lungs and pleura: No pleural effusions or pneumothorax. Lungs are clear. Mediastinum: Mediastinal contours appear normal. Heart size is normal. Bones and chest wall: No suspicious bony lesions. Overlying soft tissues appear unremarkable. IMPRESSION: No evidence acute pulmonary process. Reviewed by: Jose M Barba MD on 04/10/2022 12:25 PM [facility] Approved by: Jose M Barba MD on 04/10/2022 12:25 PM [facility] Station ID: [id number]
[2022-04-10 13:55] VITALS: BP 135/78
== END 2022-04-10 13:54 | disposition home or self-care (01) ==
LOC: EDUNIT# → ED 11:06
DX: R42 Dizziness and giddiness (principal); I10 Essential (primary) hypertension; E11.42 Type 2 diabetes mellitus with diabetic polyneuropathy; Z87.891 Personal history of nicotine dependence
CPT/HCPCS: 36415; 70450; 71045; 80053; 83690; 85025; 93005; 99284; A9270